=== PATIENT | male | born 1970 | race Caucasian/White ===

== ENCOUNTER 2017-04-24 21:33 | Emergency (ER) | payer OTHER, BC ==
[2017-04-24 22:05] VITALS: BP 122/63; PULSE 65; TEMP 98.1; BMI 28.1
[2017-04-25] MEDS ORDERED: diazePAM 5 MG TABLET PO ONE (01:49)
[2017-04-25] MEDS ORDERED: KETOROLAC TROMETHAMINE 60 MG/2 ML VIAL IM ONE (01:49)
--- NOTE | 2017-04-25 01:52 | PDOC ---
History of Present Illness - General History Source: Patient, Old Records Exam Limitations: No Limitations - History of Present Illness Initial Comments: 04/25/17 01:52 The patient is a 46 year old male presenting with family, with a significant past medical history of a heart murmur, who presents to the emergency department with with neck and right clavicle pain, as well as right upper extremity numbness/tingling since 5am this morning. 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 He describes his pain as ranging from moderate to severe, without radiation. He notes that his posture is affected due to the pain and certain movements exacerbates the pain. He denies any head trauma, dizziness or loss of consciousness. He denies any other kind of injury. The patient denies chest pain, shortness of breath, headache and dizziness. Denies fever, chills, nausea, vomit, diarrhea and constipation. Allergies: None Past surgical history: None reported Social history: Social alcohol use. Occasional marijuana use. No tobacco use. <Jose Rafael Mcginnis - Last Filed: 04/25/17 01:52> <Thuy Corbett - Last Filed: 04/25/17 02:34> - General Chief Complaint: Pain Stated Complaint: INJURY Time Seen by Provider: 04/24/17 23:42 Past History <Jose Rafael Mcginnis - Last Filed: 04/25/17 01:52> - Past Medical History Cardiac Disorders: Yes (HEART MURMUR) COPD: No - Suicide/Smoking/Psychosocial Hx Smoking Status: Yes Smoking History: Never smoked Have you smoked in the past 12 months: No Number of Cigarettes Smoked Daily: 4 Information on smoking cessation initiated: No Hx Alcohol Use: No Drug/Substance Use Hx: No Substance Use Type: Alcohol <Thuy Corbett - Last Filed: 04/25/17 02:34> - Past Medical History Allergies/Adverse Reactions: Allergies Allergy/AdvReac Type Severity Reaction Status Date / Time No Known Allergies Allergy Verified 04/24/17 22:02 Home Medications: Ambulatory Orders Cyclobenzaprine HCl [Flexeril 10 mg] 10 mg PO BID PRN #10 tablet 04/25/17 Ibuprofen [Motrin -] 600 mg PO TID PRN #21 tablet 04/25/17 Oxycodone HCl/Acetaminophen [Percocet 5-325 mg Tablet] 1 tab PO BID PRN #10 tablet MDD 2 04/25/17 Review of Systems - Review of Systems Able to Perform ROS?: Yes Comments:: 04/25/17 01:53 GENERAL/CONSTITUTIONAL: No fever or chills. No weakness. HEAD, EYES, EARS, NOSE AND THROAT: No change in vision. No ear pain or discharge. No sore throat. CARDIOVASCULAR: No chest pain or shortness of breath RESPIRATORY: No cough, wheezing, or hemoptysis. GASTROINTESTINAL: No nausea, vomiting, diarrhea or constipation. GENITOURINARY: No dysuria, frequency, or change in urination. MUSCULOSKELETAL: (+) Neck pain and upper back pain. No joint or muscle swelling or pain. SKIN: No rash NEUROLOGIC: (+) Numbness / tingling right upper extremity. No headache, vertigo , loss of consciousness. ENDOCRINE: No increased thirst. No abnormal weight change HEMATOLOGIC/LYMPHATIC: No anemia, easy bleeding, or history of blood clots. ALLERGIC/IMMUNOLOGIC: No hives or skin allergy. <Jose Rafael Mcginnis - Last Filed: 04/25/17 01:52> *Physical Exam - Vital Signs Last Vital Signs Temp Pulse Resp BP Pulse Ox 98.1 F 65 18 122/63 97 04/24/17 22:03 04/24/17 22:03 04/24/17 22:03 04/24/17 22:03 04/24/17 22:03 - Physical Exam Comments: 04/25/17 01:53 GENERAL: Awake, alert, and fully oriented, in no acute distress HEAD: No signs of trauma, normocephalic, atraumatic EYES: PERRLA, EOMI, sclera anicteric, conjunctiva clear ENT: Auricles normal inspection, hearing grossly normal, nares patent, oropharynx clear without exudates. Moist mucosa NECK: Normal ROM, supple, no lymphadenopathy, JVD, or masses LUNGS: No distress, speaks full sentences, clear to auscultation bilaterally HEART: Regular rate and rhythm, normal S1 and S2, no murmurs, rubs or gallops, peripheral pulses normal and equal bilaterally. ABDOMEN: Soft, nontender, normoactive bowel sounds. No guarding, no rebound. No masses EXTREMITIES : Normal inspection, Normal range of motion, no edema. No clubbing or cyanosis. NEUROLOGICAL: Cranial nerves II through XII grossly intact. Normal speech, normal gait. (+) Focal tingling and numbnes down right arm to the 3rd digit. SKIN: Warm, Dry, normal turgor, no rashes or lesions noted. <Jose Rafael Mcginnis - Last Filed: 04/25/17 01:52> - Vital Signs Last Vital Signs Temp Pulse Resp BP Pulse Ox 98.1 F 65 18 122/63 97 04/24/17 22:03 04/24/17 22:03 04/24/17 22:03 04/24/17 22:03 04/24/17 22:03 <Thuy Corbett - Last Filed: 04/25/17 02:34> ED Treatment Course - RADIOLOGY Radiology Studies Ordered: Category Date Time Status CERVICAL SPINE CT W/O CONTR [CT] Stat CT Scan 04/25/17 00:38 Taken CLAVICLE-RIGHT SIDE [RAD] Stat Radiology 04/25/17 00:38 Taken SHOULDER-RIGHT [RAD] Stat Radiology 04/25/17 00:38 Taken <Thuy Corbett - Last Filed: 04/25/17 02:34> Medical Decision Making - Medical Decision Making 04/25/17 02:[address] findings. There is no fracture, subluxation, prevertebral soft tissue swelling. There are some mild degenerative changes. Lung apices was seen and they're clear. Clavicular x-ray was negative for fracture. Right shoulder x-ray was negative for any juvenile fracture and there is no dislocation <Thuy Corbett - Last Filed: 04/25/17 02:34> *DC/Admit/Observation/Transfer - Attestations Scribe Attestion: 04/25/17 01:53 Documentation prepared by Jose Rafael Mcginnis, acting as medical billing assistant for Thuy Corbett MD <Jose Rafael Mcginnis - Last Filed: 04/25/17 01:52> <Thuy Corbett - Last Filed: 04/25/17 02:34> Diagnosis at time of Disposition: Right upper limb pain Neck injury Qualifiers: Encounter type: initial encounter Qualified Code(s): S19.9XXA - Unspecified injury of neck, initial encounter Injury of right shoulder and upper arm Qualifiers: Encounter type: initial encounter Qualified Code(s): S49.91XA - Unspecified injury of right shoulder and upper arm, initial encounter - Discharge Dispostion Disposition: HOME Condition at time of disposition: Stable - Prescriptions Prescriptions: Cyclobenzaprine HCl [Flexeril 10 mg] 10 mg PO BID PRN #10 tablet PRN Reason: Muscle Spasms Ibuprofen [Motrin -] 600 mg PO TID PRN #21 tablet PRN Reason: Pain Level 7 - 10 Oxycodone HCl/Acetaminophen [Percocet 5-325 mg Tablet] 1 tab PO BID PRN #10 tablet MDD 2 PRN Reason: Pain Level 7 - 10 - Referrals Referrals: James Bernal MD [Staff Physician] - Duglas Crespo MD [Staff Physician] - - Patient Instructions Printed Discharge Instructions: DI for Neck Sprain, DI for Arm Pain, DI for Neck Pain, DI for Numbness/tingling Additional Instructions: please followup with the orthopedist wear your sling for comfort take tyelnol or motrin or aleve for pain PERCOCET IS A NARCOTIC AND SHOULD ONLY BE TAKEN FOR SEVERE PAIN. IT IS SEDATING AND YOU SHOULD NOT DRINK OR DRIVE OR OPERATE MACHINERY WHILE TAKING THIS MEDICINE. - Post Discharge Activity Forms/Work/School Notes: Back to Work
[2017-04-25] MEDS ORDERED: KETOROLAC TROMETHAMINE 60 MG/2 ML VIAL ONE (02:29)
[2017-04-25] MEDS ORDERED: diazePAM 5 MG TABLET ONE (02:30)
== END 2017-04-25 02:46 | disposition home or self-care (01) ==
LOC: JER 21:33
PROC: 3E0233Z Introduction of Anti-inflammatory into Muscle, Percutaneous Approach (ICD-10-PCS; principal; 2017-04-24)
DX: S19.80XA Other specified injuries of unspecified part of neck, initial encounter (principal); S49.81XA Other specified injuries of right shoulder and upper arm, initial encounter; W20.8XXA Other cause of strike by thrown, projected or falling object, initial encounter; Y93.89 Activity, other specified; Y92.038 Other place in apartment as the place of occurrence of the external cause; Y99.0 Civilian activity done for income or pay
CPT/HCPCS: 72125-TC; 73000-TC-RT-FY; 73030-TC-RT-FY; 99282-25

== ENCOUNTER 2017-07-06 15:23 | Emergency (ER) | payer SELFPAY ==
[2017-07-06 15:38] VITALS: BMI 28.1
--- NOTE | 2017-07-06 15:38 | PDOC ---
Rapid Medical Evaluation Time Seen by Provider: 07/06/17 15:34 Medical Evaluation: Allergies Allergy/AdvReac Type Severity Reaction Status Date / Time No Known Allergies Allergy Verified 07/06/17 15:34 07/06/17 15:34 I have performed a brief in-person evaluation of this patient. The patient presents with a chief complaint of: coughing, "lungs hurt" Pertinent physical exam findings: slight wheeze to RUL, otherwise clear I have ordered the following: cxr The patient will proceed to the ED for further evaluation. Discharge Disposition - Diagnosis Coughing - Referrals - Patient Instructions - Post Discharge Activity
[2017-07-06 16:15] LABS: BASO % 0.6 % (0-2.0); EOS % 4.2 % (0-4.5); HEMATOCRIT 42.7 % (35.4-49); HEMOGLOBIN 15.1 GM/dL (11.7-16.9); LYMPH % 19.9 % (8-40); MCH 32.3 pg (25.7-33.7); MCHC 35.3 g/dl (32.0-35.9); MEAN CELL VOLUME 91.4 fl (80-96); MONO % 5.7 % (3.8-10.2); NEUT % 69.6 % (42.8-82.8); PLATELET COUNT 193 K/MM3 (134-434); RBC 4.67 M/mm3 (4.00-5.60); RDW 13.7 % (11.9-15.9); WHITE BLOOD COUNT 7.4 K/mm3 (4.0-10.0)
[2017-07-06] MEDS ORDERED: ACETAMINOPHEN 1000 MG/100 ML VIAL (NON FORMULARY) IVPB ONE (16:46)
[2017-07-06] MEDS ORDERED: SODIUM CHLORIDE 0.9% 500 ML INFUS.BAG IV ONE (16:46)
[2017-07-06 16:55] LABS: ALBUMIN 4.1 g/dl (3.4-5.0); ANION GAP 4 (8-16); BLOOD UREA NITROGEN 11 mg/dL (7-18); CALCIUM 8.6 mg/dL (8.5-10.1); CHLORIDE 107 mmol/L (98-107); CO2 30 mmol/L (21-32); CREATININE 0.9 mg/dL (0.7-1.3); GLUCOSE,RANDOM 118 mg/dL (74-106); SGPT/ALT 46 U/L (12-78); SODIUM 141 mmol/L (136-145)
--- NOTE | 2017-07-06 16:55 | PDOC ---
History of Present Illness - History of Present Illness Initial Comments: 07/06/17 18:10 The patient is a 46 year old male, with no significant PMH, who presents to the emergency department complaining of, 2 weeks of intermittent left lower quadrant pain, intermittent right upper back pain, and intermittent right elbow numbness. The patient states the intermittent left lower quadrant pain comes and goes with no exacerbating or remitting factors. As per the intermittent right upper back pain, the patient states the pain radiates to the right side of his chest and last for a few seconds before resolving on its own. As per the right elbow numbness, the patient states the numbness comes and goes. The patient states he does not have any right elbow numbness at presentation. The patient also reports he has been having intermittent diarrhea for the past 2 weeks. The patient denies any recent injury or trauma. The patient denies chest pain, shortness of breath, headache and dizziness. Denies fever, chills, nausea, vomit, and constipation. Denies flank pain, dysuria, frequency, urgency and hematuria. Allergies: NKA <Tahir De Dios - Last Filed: 07/06/17 18:17> - General History Source: Patient Exam Limitations: No Limitations <Michael Burnette - Last Filed: 07/06/17 19:46> - General Chief Complaint: Pain Stated Complaint: SOB, ABD PAIN Time Seen by Provider: 07/06/17 15:34 Past History <Tahir De Dios - Last Filed: 07/06/17 18:17> - Past Medical History Cardiac Disorders: Yes (HEART MURMUR) COPD: No - Suicide/Smoking/Psychosocial Hx Smoking Status: Yes Smoking History: Never smoked Have you smoked in the past 12 months: No Number of Cigarettes Smoked Daily: 4 Information on smoking cessation initiated: No Hx Alcohol Use: No Drug/Substance Use Hx: No Substance Use Type: Alcohol <Michael Burnette - Last Filed: 07/06/17 19:46> - Past Medical History Allergies/Adverse Reactions: Allergies Allergy/AdvReac Type Severity Reaction Status Date / Time No Known Allergies Allergy Verified 07/06/17 15:34 Home Medications: Ambulatory Orders Naproxen [Naprosyn -] 500 mg PO BID PRN #20 tablet 07/06/17 Review of Systems - Review of Systems Comments:: 04/20/18 18:13 GENERAL/CONSTITUTIONAL: No fever or chills. No weakness. HEAD, EYES, EARS, NOSE AND THROAT: No change in vision. No ear pain or discharge. No sore throat. CARDIOVASCULAR: No chest pain or shortness of breath. RESPIRATORY: No cough, wheezing, or hemoptysis. GASTROINTESTINAL: +Left lower quadrant pain. No nausea, vomiting, diarrhea or constipation. GENITOURINARY: No dysuria, frequency, or change in urination. MUSCULOSKELETAL: +Right upper back pain. No neck pain. SKIN: No rash NEUROLOGIC: +Right elbow numbness (resolved). No headache, vertigo, loss of consciousness. ENDOCRINE: No increased thirst. No abnormal weight change. HEMATOLOGIC/LYMPHATIC: No anemia, easy bleeding, or history of blood clots. ALLERGIC/IMMUNOLOGIC: No hives or skin allergy. <Tahir De Dios - Last Filed: 07/06/17 18:17> *Physical Exam - Vital Signs Last Vital Signs Temp Pulse Resp BP Pulse Ox 98.2 F 74 18 124/79 98 07/06/17 15:35 07/06/17 16:56 07/06/17 15:35 07/06/17 15:35 07/06/17 16:56 - Physical Exam Comments: 07/06/17 18:14 GENERAL: Awake, alert, and fully oriented, in no acute distress HEAD: No signs of trauma EYES: PERRLA, EOMI, sclera anicteric, conjunctiva clear ENT: Auricles normal inspection, hearing grossly normal, nares patent, oropharynx clear without exudates. Moist mucosa NECK: Normal ROM, supple. LUNGS: Breath sounds equal, clear to auscultation bilaterally. No wheezes, and no crackles HEART: Regular rate and rhythm, normal S1 and S2, no murmurs, rubs or gallops ABDOMEN: +Left lower quadrant tenderness to palpation. Soft. No guarding, no rebound. No masses EXTREMITIES: Normal range of motion, no edema. No clubbing or cyanosis. No cords, erythema or tenderness. NEUROLOGICAL: Cranial nerves II through XII intact. Normal speech, normal gait. 5/5 strength upper and lower extremities. Sensation intact throughout. SKIN: Warm, Dry, normal turgor, no rashes or lesions noted. <Tahir De Dios - Last Filed: 07/06/17 18:17> - Vital Signs Last Vital Signs Temp Pulse Resp BP Pulse Ox 98.2 F 64 18 124/79 100 07/06/17 15:35 07/06/17 15:35 07/06/17 15:35 07/06/17 15:35 07/06/17 15:35 <Michael Burnette - Last Filed: 07/06/17 19:46> Heart Score/ECG Review #1 ECG reviewed & interpreted by me at: 16:55 07/06/17 18:03 NSR 51, no std/april, TWI III, normal axis, normal intervals, QTC 361 msec <Michael Burnette - Last Filed: 07/06/17 19:46> ED Treatment Course - LABORATORY CBC & Chemistry Diagram: 07/06/17 15:56 07/06/17 15:56 - ADDITIONAL ORDERS Additional order review: Laboratory Results 07/06/17 07/06/17 07/06/17 16:39 15:56 15:56 Sodium 141 Potassium 4.2 Chloride 107 Carbon Dioxide 30 Anion Gap 4 L BUN 11 Creatinine 0.9 D Creat Clearance w eGFR > 60 Random Glucose 118 H Calcium 8.6 Total Bilirubin 0.5 D AST 28 D ALT 46 D Alkaline Phosphatase 79 Total Protein 7.1 Albumin 4.1 Lipase 107 Urine Color Ltyellow Urine Appearance Clear Urine pH 5.0 D Ur Specific [place] 1.018 Urine Protein Negative Urine Glucose (UA) Negative Urine Ketones Negative Urine Blood Negative Urine Nitrite Negative Urine Bilirubin Negative Urine Urobilinogen Negative Ur Leukocyte Esterase Negative 07/06/17 07/06/17 15:56 14:20 RBC 4.67 4.81 MCV 91.4 90.8 MCHC 35.3 35.4 RDW 13.7 14.1 MPV 10.0 9.9 Neutrophils % 69.6 68.8 Lymphocytes % 19.9 20.4 D Monocytes % 5.7 6.2 Eosinophils % 4.2 3.7 Basophils % 0.6 0.9 - Medications Given in the ED: ED Medications Discontinued Medications Generic Name Dose Route Start Last Admin Trade Name Freq PRN Reason Stop Dose Admin Acetaminophen 1,000 mg 07/06/17 16:46 07/06/17 17:00 Ofirmev Injection - IVPB 07/06/17 16:47 1,000 mg ONCE ONE Administration Sodium Chloride 1,000 ml 07/06/17 16:46 07/06/17 17:00 Normal Saline - IV 07/06/17 16:47 1,000 ml ONCE ONE Administration <Alvin De Diosian - Last Filed: 07/06/17 18:17> - LABORATORY CBC & Chemistry Diagram: 07/06/17 15:56 07/06/17 15:56 - ADDITIONAL ORDERS Additional order review: 07/06/17 15:56 RBC 4.67 MCV 91.4 MCHC 35.3 RDW 13.7 MPV 10.0 Neutrophils % 69.6 Lymphocytes % 19.9 D Monocytes % 5.7 Eosinophils % 4.2 Basophils % 0.6 - RADIOLOGY Radiology Studies Ordered: Category Date Time Status ABDOMEN & PELVIS CT WITH CONTR [CT] Stat CT Scan 07/06/17 16:46 Ordered CHEST PA & LAT [RAD] Stat Radiology 07/06/17 16:46 Ordered <Michael Burnette - Last Filed: 07/06/17 19:46> Medical Decision Making - Medical Decision Making 07/06/17 17:38 A portion of this note was documented by scribe services under my direction. I have reviewed the details of the note, within reason, and agree with the documentation with the following case summary and management plan written by me. Patient treated in the ED. Nursing notes are reviewed and incorporated into the medical decision-making. Vital signs reviewed. Peripheral IV access obtained by the nurse, laboratory studies are drawn and sent, reviewed and interpreted by myself. Vital Signs Temp Pulse Resp BP Pulse Ox 98.2 F 74 18 124/79 98 07/06/17 15:35 07/06/17 16:56 07/06/17 15:35 07/06/17 15:35 07/06/17 16:56 46-year-old male with no past medical history presents with multiple complaints for 2 weeks. The patient reports several symptoms including LLQ pain. There is no inciting or exacerbating factors. States the pain comes and goes but denies dysuria or hematuria. Denies flank pain. Pt is unsure of what sets off his pain. The patient also reports c/o R upper back pain radiating to right chest. Not exertional, no shortness of breath. States that the pain comes for seconds but resolves on its own. Pt also complains of intermittent R elbow numbness, but denies numbness now. Denies fevers, chills. Denies nausea, vomiting. Reports intermittent loose stool but 2 weeks but not currently. The patient has curtis positive review of systems. It is unclear what the patient' s symptoms are. Pt does drink alcohol fairly frequently, so perhaps there could be liver disease. With LLQ pain, will need to investigate for colitis or diverticulitis. It is unlikely to be ACS or PE given description. The patient's numbness does not appear consistent with stroke clinically. Will obtain an ECG, labs, chest xray, and CT abdomen and pelvis, and UA. If workup is negative, will refer patient to outpatient follow up. 07/06/17 19:41 CBC, BMP 07/06/17 15:56 07/06/17 15:56 CMP Sodium 141 mmol/L (136-145) 07/06/17 15:56 Potassium 4.2 mmol/L (3.5-5.1) 07/06/17 15:56 Chloride 107 mmol/L (98-107) 07/06/17 15:56 Carbon Dioxide 30 mmol/L (21-32) 07/06/17 15:56 Anion Gap 4 (8-16) L 07/06/17 15:56 BUN 11 mg/dL (7-18) 07/06/17 15:56 Creatinine 0.9 mg/dL (0.7-1.3) D 07/06/17 15:56 Creat Clearance w eGFR > 60 (>60) 07/06/17 15:56 Random Glucose 118 mg/dL (74-106) H 07/06/17 15:56 Calcium 8.6 mg/dL (8.5-10.1) 07/06/17 15:56 Total Bilirubin 0.5 mg/dL (0.2-1.0) D 07/06/17 15:56 AST 28 U/L (15-37) D 07/06/17 15:56 ALT 46 U/L (12-78) D 07/06/17 15:56 Alkaline Phosphatase 79 U/L (45-117) 07/06/17 15:56 Creatine Kinase 212 IU/L (39-308) 07/06/17 16:39 Troponin I < 0.02 ng/ml (0.00-0.05) 07/06/17 16:39 Total Protein 7.1 g/dl (6.4-8.2) 07/06/17 15:56 Albumin 4.1 g/dl (3.4-5.0) 07/06/17 15:56 Lipase 107 U/L (73-393) 07/06/17 15:56 Urine Test Results Urine Color Ltyellow 07/06/17 16:39 Urine Appearance Clear 07/06/17 16:39 Urine pH 5.0 (5.0-8.0) D 07/06/17 16:39 Ur Specific [place] 1.018 (1.001-1.035) 07/06/17 16:39 Urine Protein Negative (NEGATIVE) 07/06/17 16:39 Urine Glucose (UA) Negative (NEGATIVE) 07/06/17 16:39 Urine Ketones Negative (NEGATIVE) 07/06/17 16:39 Urine Blood Negative (NEGATIVE) 07/06/17 16:39 Urine Nitrite Negative (NEGATIVE) 07/06/17 16:39 Urine Bilirubin Negative (<2.0 mg/dL) 07/06/17 16:39 Ur Leukocyte Esterase Negative (NEGATIVE) 07/06/17 16:39 Chest xray reviewed. No acute findings. Abdomen and pelvis CT reviewed. Diverticulosis but no acute diverticulitis. Unclear what the etiology is. The patient did have some very minimal pain in the LLQ but no evidence of diverticulitis on CT. The patient's etiology of the symptoms are not clear, but it does appear to have some components of chronicity. The patient however does feel reassured. i advised that the patient would benefit from an outpatient physician. He is requesting follow up here at [facility]. In the meantime, will treat as muscle spasm and treat with naproxen. Pt verbalizes understanding and agrees with plan. <Michael Burnette - Last Filed: 07/06/17 19:46> *DC/Admit/Observation/Transfer - Attestations Scribe Attestion: 07/06/17 18:14 Documentation prepared by Tahir De Dios, acting as medical staff services coordinator for Michael Burnette MD. <Tahir De Dios - Last Filed: 07/06/17 18:17> - Discharge Dispostion Admit: No <Michael Burnette - Last Filed: 07/06/17 19:46> Diagnosis at time of Disposition: Atypical chest pain Diverticulosis Qualifiers: Diverticulosis site: unspecified location Diverticulosis bleeding: diverticulosis without bleeding Qualified Code(s): K57.90 - Diverticulosis of intestine, part unspecified, without perforation or abscess without bleeding - Discharge Dispostion Disposition: HOME Condition at time of disposition: Stable - Prescriptions Prescriptions: Naproxen [Naprosyn -] 500 mg PO BID PRN #20 tablet PRN Reason: Pain - Referrals Referrals: Trey Ross MD [Staff Physician] - Buster Gillespie MD [Staff Physician] - - Patient Instructions Printed Discharge Instructions: DI for Diverticulosis, DI for Atypical Chest Pain Additional Instructions: Please make an appointment with the [facility]. Call to schedule an appointment. Make sure to drink plenty of fluids and rest. You may take 500 mg naproxen every 12 hours as needed for pain. You have a diagnosis of diverticulosis. Please make an appointment with a GI doctor. For your pain, it is unclear at this very moment what it is, but you would benefit from an outpatient workup. Please feel better.
[2017-07-06 16:56] LABS: ALK PHOS 79 U/L (45-117); BILIRUBIN,TOTAL 0.5 mg/dL (0.2-1.0); TOT PROT 7.1 g/dl (6.4-8.2)
[2017-07-06 17:05] LABS: POTASSIUM 4.2 mmol/L (3.5-5.1); SGOT/AST 28 U/L (15-37)
[2017-07-06 17:07] LABS: BASO % 0.9 % (0-2.0); EOS % 3.7 % (0-4.5); HEMATOCRIT 43.7 % (35.4-49); HEMOGLOBIN 15.5 GM/dL (11.7-16.9); LYMPH % 20.4 % (8-40); MCH 32.1 pg (25.7-33.7); MCHC 35.4 g/dl (32.0-35.9); MEAN CELL VOLUME 90.8 fl (80-96); MEAN PLT VOLUME 9.9 fl (7.5-11.1); MONO % 6.2 % (3.8-10.2); NEUT % 68.8 % (42.8-82.8); PLATELET COUNT 193 K/MM3 (134-434); RBC 4.81 M/mm3 (4.00-5.60); RDW 14.1 % (11.9-15.9); WHITE BLOOD COUNT 8.4 K/mm3 (4.0-10.0)
[2017-07-06 17:46] LABS: URINE APPEARANCE CLEAR; URINE BILIRUBIN NEGATIVE (<2.0 mg/dL); URINE BLOOD NEGATIVE (NEGATIVE); URINE COLOR LTYELLOW; URINE GLUCOSE (UA) NEGATIVE (NEGATIVE); URINE KETONE NEGATIVE (NEGATIVE); URINE LEUK ESTERASE NEGATIVE (NEGATIVE); URINE NITRITE NEGATIVE (NEGATIVE); URINE PROTEIN NEGATIVE (NEGATIVE); URINE UROBILINOGEN NEGATIVE mg/dL (0.2-1.0)
[2017-07-06 19:38] VITALS: BP 121/64; PULSE 61; TEMP 98
--- NOTE | 2017-07-07 08:47 | EKG ---
Test Reason : Blood Pressure : / mmHG Vent. Rate : 051 BPM Atrial Rate : 051 BPM P-R Int : 134 ms QRS Dur : 088 ms QT Int : 392 ms P-R-T Axes : 054 047 036 degrees QTc Int : 361 ms SINUS BRADYCARDIA OTHERWISE NORMAL ECG WHEN COMPARED WITH ECG OF 27-NOV-2012 17:36, QT HAS SHORTENED Confirmed by KIANNA MURRAY MD ([id number]) on 07/07/2017 8:46:58 AM Referred By: Confirmed By:KIANNA MURRAY MD
== END 2017-07-06 20:01 | disposition home or self-care (01) ==
LOC: JER 15:23
PROC: 3E033NZ Introduction of Analgesics, Hypnotics, Sedatives into Peripheral Vein, Percutaneous Approach (ICD-10-PCS; principal; 2017-07-06)
DX: K57.90 Diverticulosis of intestine, part unspecified, without perforation or abscess without bleeding (principal); R78.9 Finding of unspecified substance, not normally found in blood
CPT/HCPCS: 36415; 71046-TC-FY; 74177-TC; 80053; 81003; 82550; 82553; 83690; 84484; 85025; 87086; 93005; 93010; 99285-25; J0131

== ENCOUNTER 2018-07-22 15:11 | Emergency (ER) | payer BC ==
[2018-07-22 15:32] VITALS: BP 139/85; PULSE 96; TEMP 98.5; BMI 28.1
--- NOTE | 2018-07-22 15:33 | PDOC ---
Rapid Medical Evaluation Chief Complaint: Seizure Time Seen by Provider: 07/22/18 15:30 Medical Evaluation: Allergies Allergy/AdvReac Type Severity Reaction Status Date / Time No Known Allergies Allergy Verified 07/22/18 15:29 07/22/18 15:31 I have performed a brief in-person evaluation of this patient. The patient presents with a chief complaint of s/p seizure this am. Patient presents with who states that he had 2 seizure episodes this am while in bed. Also fell while trying to get out of bed afterwards. Pertinent physical exam finding: NAD even and unlabored breathing neurologically intact I have ordered the following: labs The patient will procedd to the ED for further evaluation. Discharge Disposition - Diagnosis Seizure - Referrals - Patient Instructions - Post Discharge Activity
[2018-07-22 16:23] LABS: BASO % 0.6 % (0-2.0); EOS % 1.9 % (0-4.5); HEMATOCRIT 46.2 % (35.4-49); HEMOGLOBIN 15.6 GM/dL (11.7-16.9); LYMPH % 13.7 % (8-40); MCH 30.6 pg (25.7-33.7); MCHC 33.8 g/dl (32.0-35.9); MEAN CELL VOLUME 90.4 fl (80-96); MEAN PLT VOLUME 9.2 fl (7.5-11.1); MONO % 7.3 % (3.8-10.2); NEUT % 76.5 % (42.8-82.8); PLATELET COUNT 197 K/MM3 (134-434); RBC 5.11 M/mm3 (4.00-5.60); RDW 14.2 % (11.9-15.9); WHITE BLOOD COUNT 9.8 K/mm3 (4.0-10.0)
[2018-07-22 16:39] LABS: ALBUMIN 4.2 g/dl (3.4-5.0); ALK PHOS 96 U/L (45-117); ANION GAP 6 MMOL/L (8-16); BILIRUBIN,TOTAL 0.4 mg/dL (0.2-1); BLOOD UREA NITROGEN 13 mg/dL (7-18); CALCIUM 9.2 mg/dL (8.5-10.1); CHLORIDE 103 mmol/L (98-107); CO2 27 mmol/L (21-32); CREATININE 0.9 mg/dL (0.55-1.3); GLUCOSE,RANDOM 116 mg/dL (74-106); POTASSIUM 4.1 mmol/L (3.5-5.1); SGOT/AST 32 U/L (15-37); SGPT/ALT 45 U/L (13-61); SODIUM 136 mmol/L (136-145); TOT PROT 7.6 g/dl (6.4-8.2)
--- NOTE | 2018-07-22 18:19 | PDOC ---
Documentation entered by Jorje Hernández SCRIBE, acting as scribe for Vivien Bedolla MD. Vivien Bedolla MD: This documentation has been prepared by the desmondibeEdgar Daniel, SCRIBE, under my direction and personally reviewed by me in its entirety. I confirm that the documentation accurately reflects all work, treatment, procedures, and medical decision making performed by me. Attending Attestation - Resident Resident Name: TrishaRoxanna - ED Attending Attestation I have performed the following: I have examined & evaluated the patient, The case was reviewed & discussed with the resident, I agree w/resident's findings & plan, Exceptions are as noted - HPI HPI: 07/22/18 18:07 The patient is a 47 year old male with a past medical history of vertigo here today for evaluation of seizure. The patients reports that she found him seizing in the middle of the night and later on in bed. Patient reports that his leg was numb when he tried to get up following his seizures. He notes having seizures as a child but could not state if he saw a neurologist or received any treatment. He has been under extreme stress recently- his mother is very sick, currently in the ICU with pna and a ptx. He has been in the hospital constantly and sleeping very little. Patient denies headache, lightheadedness. Denies fever, chills. Denies chest pain, shortness of breath. Denies nausea, vomiting, diarrhea, abdominal pain. Allergies: NKA - Physicial Exam PE: GENERAL: Awake, alert, and fully oriented, in no acute distress. Tearful at times during interview HEAD: No signs of trauma EYES: PERRLA, EOMI, sclera anicteric, conjunctiva clear ENT: Auricles normal inspection, hearing grossly normal, nares patent, oropharynx clear without exudates. Moist mucosa NECK: Normal ROM, supple, no lymphadenopathy, JVD, or masses LUNGS: Breath sounds equal, clear to auscultation bilaterally. No wheezes, and no crackles HEART: Regular rate and rhythm, normal S1 and S2, no murmurs, rubs or gallops ABDOMEN: Soft, nontender, normoactive bowel sounds. No guarding, no rebound. No masses EXTREMITIES: Normal range of motion, no edema. No clubbing or cyanosis. No cords, erythema, or tenderness NEUROLOGICAL: Cranial nerves II through XII grossly intact. Normal speech, normal gait. Motor and sensation intact SKIN: Warm, Dry, normal turgor, no rashes or lesions noted. - Medical Decision Making Labs are wnl. This is likely related to extreme stress and sleep deprivation recently, as he has a distant history of seizures as a child. However, as it has been more than 30 years (possibly more than 40) since last seizure, will obtain CTH. If normal, will DC with neuro f/u.
--- NOTE | 2018-07-22 19:54 | PDOC ---
History of Present Illness - General Chief Complaint: Seizure Stated Complaint: SEIZURES Time Seen by Provider: 07/22/18 15:30 - History of Present Illness Initial Comments: 07/22/18 19:00 Eligio Woodall is a 47yo man with a remote history of childhood seizures, Meniere's (Dx 2013, no follow up) who presents with 2x possible seizures this morning. His reports that she was wakened to see him jerking and twitching in bed today. She states that he screamed something about blood on his hands fell back asleep. An hour or so later he had a similar episode. Afterward he tried to stand but fell to the ground, stating that his leg was numb. He reports not remembering the incident later. His states that he was acting oddly following the apparent seizures. Mr Woodall does not remember if he followed with neurology as a child nor what types of testing he may have had, but he does not believe that he took medication. He has not had any seizure activity for 10 or more years. He denies any recent unusual symptoms including fever, GLYNN, URI, n/v/d/c but does report that his mother has been in the ICU, and he has been sleeping very little for the past week or so. He also notes that he has been having episodes of vertigo and tinnitus for the past 5 years, but they have been more frequent over the past week. He was diagnosed in the ED and never followed up with neurology. He also notes being under a significant amount of stress Past History - Past Medical History Allergies/Adverse Reactions: Allergies Allergy/AdvReac Type Severity Reaction Status Date / Time No Known Allergies Allergy Verified 07/22/18 15:29 Home Medications: Ambulatory Orders Naproxen [Naprosyn -] 500 mg PO BID PRN #20 tablet 07/06/17 Cardiac Disorders: Yes (HEART MURMUR) COPD: No Seizures: Yes (?) - Immunization History Immunization Up to Date: Yes - Suicide/Smoking/Psychosocial Hx Smoking Status: Yes Smoking History: Never smoked Have you smoked in the past 12 months: No Number of Cigarettes Smoked Daily: 4 Hx Alcohol Use: No Drug/Substance Use Hx: No Substance Use Type: Alcohol Review of Systems - Review of Systems Comments:: General: No fevers, no chills, no weight or appetite change, no malaise HEENT: No changes in vision, no changes in hearing, no congestion, no sore throat CV: No chest pain, no palpitations, no LE edema Pulm: No SOB, no cough, no wheezing GI: No nausea or vomiting, no change in bowel habits, no melena : No frequency, no urgency, no dysuria Musc: No back pain, no joint swelling, no recent injury Skin: No rash, no lesions, no erythema Endo: No excessive thirst, no heat/cold intolerance Heme: No unusual bruising or bleeding, no swollen glands Neuro: No syncope, no numbness/tingling, no focal weakness. See HPI Vasc: No claudication Psych: No recent change in mood, no SI or HI *Physical Exam - Vital Signs Last Vital Signs Temp Pulse Resp BP Pulse Ox 98.5 F 96 H 18 139/85 98 07/22/18 15:29 07/22/18 15:29 07/22/18 15:29 07/22/18 15:29 07/22/18 15:29 - Physical Exam Comments: General: Comfortable, no acute distress HEENT: PERRL, EOMI, MMM, voice normal, atraumatic Cards: RRR, no murmur appreciated Pulm: Comfortable on room air, clear to auscultation bilaterally Abd: Soft, nontender, nondistended Ext: Atraumatic. No LE edema. ROM intact. Strength 5/5 and equal bilaterally Vasc: Extremities WWP. Palpable radial and pedal pulses bilaterally Skin: Normal color, no rashes or lesions Neuro: A&Ox3, CN grossly intact, normal speech, motor/sensory grossly intact and symmetric Psych: Mood appropriate to situation ED Treatment Course - LABORATORY CBC & Chemistry Diagram: 07/22/18 15:49 07/22/18 15:49 - ADDITIONAL ORDERS Additional order review: Laboratory Results 07/22/18 15:49 Sodium 136 Potassium 4.1 Chloride 103 Carbon Dioxide 27 Anion Gap 6 L BUN 13 Creatinine 0.9 Creat Clearance w eGFR 91.25 Random Glucose 116 H Calcium 9.2 Total Bilirubin 0.4 AST 32 ALT 45 Alkaline Phosphatase 96 Total Protein 7.6 Albumin 4.2 07/22/18 15:49 RBC 5.11 MCV 90.4 MCHC 33.8 RDW 14.2 MPV 9.2 Neutrophils % 76.5 Lymphocytes % 13.7 D Monocytes % 7.3 Eosinophils % 1.9 Basophils % 0.6 - RADIOLOGY Radiology Studies Ordered: Category Date Time Status HEAD CT WITHOUT CONTRAST [CT] Stat CT Scan 07/22/18 18:05 Ordered Medical Decision Making - Medical Decision Making 07/22/18 19:00 Eligio Woodall is a 47yo man with a remote history of childhood seizures, Meniere's disease who presents with apparent seizures this morning. - Benign exam, reassuring - CBC, CMP sent from [facility]. No concerning abnormalities. - Given sudden return of seizure activity, increasing vertigo will CT head to r/ o acute abnormalities 07/22/18 19:54 - CT completed. Reviewed in ED, no acute pathology noted. Read pending - Assuming CT is negative, will d/c home with neurology follow up. 07/22/18 21:18 - CT negative for acute injury - Discussed w/ Mr Maher. D/C home. Discussed with Davie Bedolla and Te. Roxanna Rico PGY1 *DC/Admit/Observation/Transfer Diagnosis at time of Disposition: Seizure - Discharge Dispostion Disposition: HOME Condition at time of disposition: Stable Decision to Admit order: No - Referrals Referrals: Cami Vasquez MD [Staff Physician] - - Patient Instructions Printed Discharge Instructions: DI for Seizure Disorder -- Adult Additional Instructions: Discharge Instructions: You were seen in the ED for a possible seizure. You had blood tests and a CT scan completed. There were no abnormalities seen. You will need to follow up with neurology within the next 1-2 weeks for evaluation of your seizures and vertigo. You have been referred to Dr Vasquez. Seek immediate medical care if you have any worsening of your symptoms, any neurological deficits (one-sided weakness, changes in speech/voice, facial droop ), or any medical emergency. - Post Discharge Activity Forms/Work/School Notes: Back to Work
== END 2018-07-22 20:51 | disposition home or self-care (01) ==
LOC: JER 15:11
DX: R56.9 Unspecified convulsions (principal)
CPT/HCPCS: 36415; 70450-TC; 80053; 85025; 99283-25

== ENCOUNTER 2020-04-01 16:28 | Emergency (ER) | payer BC ==
[2020-04-01 17:24] VITALS: BP 118/73; PULSE 63; TEMP 98.6; BMI 34.0
== END 2020-04-01 18:02 | disposition home or self-care (01) ==
LOC: JER 16:28
DX: J02.9 Acute pharyngitis, unspecified (principal); R51.9 Headache, unspecified; R05 Cough; Z20.822 Contact with and (suspected) exposure to COVID-19
CPT/HCPCS: 99283-25; C9803; U0003

== ENCOUNTER 2021-08-27 01:19 | Emergency (ER) | payer BC ==
[2021-08-27 02:08] VITALS: BP 137/92; PULSE 102; TEMP 98.6; BMI 29.0
== END 2021-08-27 03:50 | disposition home or self-care (01) ==
LOC: JER 01:19
DX: R11.2 Nausea with vomiting, unspecified (principal); R06.02 Shortness of breath; R10.9 Unspecified abdominal pain
CPT/HCPCS: 0241U-QW; 71046-TC-FY; 93005; 93010; 99285-25

== ENCOUNTER 2021-11-05 13:53 | Emergency (ER) | payer BC ==
[2021-11-05 14:07] VITALS: BP 121/74; PULSE 82; RESP 18; TEMP 98.2; BMI 25.0
== END 2021-11-05 16:30 | disposition home or self-care (01) ==
LOC: JERFT 13:53
DX: M79.672 Pain in left foot (principal)
CPT/HCPCS: 73630-TC-LT; 99283-25

== ENCOUNTER 2022-04-20 22:18 | Emergency (ER) | payer BC ==
[2022-04-20 22:29] VITALS: BP 140/60; PULSE 96; RESP 18; TEMP 98; BMI 29.2
[2022-04-20] MEDS ORDERED: KETOROLAC TROMETHAMINE 60 MG/2 ML VIAL IM ONE (23:39)
[2022-04-20] MEDS ORDERED: KETOROLAC TROMETHAMINE 60 MG/2 ML VIAL ONE (23:45)
== END 2022-04-21 00:46 | disposition home or self-care (01) ==
LOC: JER 22:18
PROC: 3E023GC Introduction of Other Therapeutic Substance into Muscle, Percutaneous Approach (ICD-10-PCS; principal; 2022-04-20)
DX: B07.0 Plantar wart (principal)
CPT/HCPCS: 0241U-QW; 73630-TC-LT; 99284-25

== ENCOUNTER 2023-04-30 10:30 | Emergency (ER) | payer BC ==
[2023-04-30 10:36] VITALS: BP 135/85; PULSE 86; RESP 18; TEMP 99.5; BMI 28.6
[2023-04-30] MEDS ORDERED: ACETAMINOPHEN 325 MG TABLET (FP) ONE (12:28)
[2023-04-30] MEDS ORDERED: MECLIZINE HCL 25 MG TABLET (FP) ONE (12:28)
[2023-04-30] MEDS ORDERED: IBUPROFEN 600 MG TABLET (FP) PO ONE (12:28)
[2023-04-30] MEDS: MECLIZINE HCL 25 MG TABLET (FP) PO ONE (13:02)
[2023-04-30] MEDS: IBUPROFEN 600 MG TABLET (FP) PO ONE (13:02)
[2023-04-30] MEDS: ACETAMINOPHEN 500 MG TABLET (FP) PO ONE (13:02)
== END 2023-04-30 13:49 | disposition home or self-care (01) ==
LOC: JER 10:30
DX: S42.121A Displaced fracture of acromial process, right shoulder, initial encounter for closed fracture (principal); R07.89 Other chest pain; M79.10 Myalgia, unspecified site; M25.511 Pain in right shoulder; M54.50 Low back pain, unspecified; R07.81 Pleurodynia; V21.01XA Electric (assisted) bicycle driver injured in collision with pedal cycle in nontraffic accident, initial encounter; Y93.55 Activity, bike riding
CPT/HCPCS: 71046-TC-FY; 73030-TC-RT-FY; 93005; 93010; 99284-25

== ENCOUNTER 2024-05-02 22:36 | Emergency (ER) | payer BC ==
[2024-05-02 22:42] VITALS: BP 134/74; PULSE 82; RESP 18; TEMP 98.4; BMI 27.3
[2024-05-03] MEDS: ARTIFICIAL TEARS OPHTHALMIC DROPS OU ONE (00:22)
== END 2024-05-03 00:26 | disposition home or self-care (01) ==
LOC: JER 22:36
DX: H00.016 Hordeolum externum left eye, unspecified eyelid (principal); Z20.822 Contact with and (suspected) exposure to COVID-19
CPT/HCPCS: 0241U-QW; 99283-25